=== PATIENT | female | born 1965 | race Caucasian/White ===

== ENCOUNTER 2018-01-04 07:32 | Day surgery (SDC) | payer BC ==
[~2018-01-04] VITALS: Ht 167.6 cm; Wt 63.7 kg
[2018-01-04 07:57] VITALS: BP 111/78; PULSE 70; TEMP 99.3
[2018-01-04] MEDS ORDERED: MULTI VITAMINS1 TAB PO (08:06)
[2018-01-04] MEDS ORDERED: ZYRTEC 10MG10 MG PO (08:06)
[2018-01-04 09:23] VITALS: BP 95/50; PULSE 70
[2018-01-04 09:38] VITALS: BP 98/64; PULSE 56
[2018-01-04 09:53] VITALS: BP 105/73; PULSE 65
[2018-01-04 10:08] VITALS: BP 113/63; PULSE 63
== END 2018-01-04 10:25 | disposition home or self-care (01) ==
LOC: SDCO 07:32
DX: Z12.11 Encounter for screening for malignant neoplasm of colon (principal); K64.0 First degree hemorrhoids
CPT/HCPCS: OP; J2250; J3010; J7030

== ENCOUNTER → 2018-01-06 | Outpatient (CLI) | payer BC ==
[~2018-01-06] MED LIST: MULTI VITAMINS1 TAB PO; ZYRTEC 10MG10 MG PO
== END ==
LOC: MC.RAD 08:40
DX: Z12.31 Encounter for screening mammogram for malignant neoplasm of breast (principal)

== ENCOUNTER → 2018-01-13 | Outpatient (CLI) | payer BC | LOC: MC.RAD 09:59 | DX: N64.89 Other specified disorders of breast (principal) ==